=== PATIENT | male | born 1995 | race African-American/Black ===

== ENCOUNTER 2016-07-06 11:49 | Emergency (ER) | payer OTHER ==
[~2016-07-06] VITALS: Ht 177.8 cm; Wt 112.4 kg
[~2016-07-06 11:49] MED LIST: AMOXICILLIN500 MG PO; AUGMENTIN875 MG PO; AZITHROMYCIN250 MG1 PO; BENTYL10 MG PO; CEFDINIR300 MG PO; CLARITIN10 M3 PO; FLONASE16 G1 BOTH NARES; FLOXIN OTIC SOLN5 ML RIGHT EAR; IBUPROFEN800 MG PO; KEFLEX500 MG PO; MOTRIN800 MG PO; NAPROSYN500 MG PO; NAPROXEN500 MG PO; PERCOCET 5/31 TABLET PO; PREDNISONE50 MG PO; ULTRAM50 MG PO; ZOFRAN ODT4 MG PO; ZOFRAN4 MG PO; [UNRECOGNIZED DRUG - OTHER] PO
[2016-07-06 12:31] LABS: HEMATOCRIT 51.4 % (38.0-50.0); MCH 28.4 PG (29.0-34.0); MCHC 34.4 G/DL (30.0-36.0); MCV 82.4 FL (86-99); MEAN PLAT.VOLUME 11.1 uM^3 (9.0-12.4); PLATELET COUNT 229 K/uL (156-360); RBC DIS.WIDTH-CV 13.2 % (11.8-14.6); RBC DIS.WIDTH-SD 39.5 % (39-53); RED BLOOD COUNT 6.24 M/uL (4.00-5.50)
[2016-07-06 12:41] LABS: CHLORIDE 103 mEq/L (99-109); POTASSIUM 4.3 mEq/L (3.7-5.4); SODIUM 138 mEq/L (136-147)
[2016-07-06 12:43] LABS: GLUCOSE 113 mg/dL (70-99)
[2016-07-06 12:44] LABS: ANION GAP 8 MEQ/L (2-14)
[2016-07-06 12:45] LABS: TOTAL BILIRUBIN 0.5 mg/dL (0.0-1.0)
[2016-07-06 12:47] LABS: ALKALINE PHOSPHATASE 44 IU/L (3-129); GFR ESTIMATE (CALCULATED) > 59 mL/min/
[2016-07-06 12:48] LABS: UREA NITROGEN (BUN) 7 mg/dL (9-23)
[2016-07-06] MEDS ORDERED: ZOFRAN ODT4 MG PO (14:00)
[2016-07-06 14:32] VITALS: BP 131/68
== END 2016-07-06 14:33 | disposition home or self-care (01) ==
LOC: EME 11:49 → EXP 11:49
DX: K52.9 Noninfective gastroenteritis and colitis, unspecified (principal)
CPT/HCPCS: 80053; 81003; 85027; 99281; 99284

== ENCOUNTER 2016-07-09 17:03 | Emergency (ER) | payer OTHER ==
[~2016-07-09] VITALS: Ht 177.8 cm; Wt 112.7 kg
[2016-07-09 17:41] LABS: ADD MIUA? NO; BILIRUBIN NEGATIVE; BLOOD NEGATIVE; COLOR YELLOW ((YELLOW)); GLUCOSE (STRIP) NEGATIVE; KETONES 20; LEUKOCYTES NEGATIVE; NITRITE NEGATIVE; PROTEIN (STRIP) NEGATIVE; SPECIFIC GRAVITY 1.017 (1.000-1.030); UROBILINOGEN 0.2 MG/DL (0.2-1.0)
[2016-07-09 17:54] LABS: EOSINOPHIL (%) 3.2 % (0-5); EOSINOPHIL COUNT 0.2 K/uL (0-0.3); HEMATOCRIT 48.6 % (38.0-50.0); IMMATURE GRANULOCYTE (%) 0.3 % (0.0-0.7); IMMATURE GRANULOCYTE COUNT 0.2 K/uL; LYMPHOCYTE COUNT 1.7 K/uL (1.0-2.8); MCH 28.2 PG (29.0-34.0); MCHC 34.6 G/DL (30.0-36.0); MCV 81.5 FL (86-99); MEAN PLAT.VOLUME 10.9 uM^3 (9.0-12.4); MONOCYTE COUNT 0.6 K/uL (0-0.8); NEUTROPHIL (%) 58.2 % (45-76); NEUTROPHIL COUNT 3.7 K/uL (1.8-6.4); PLATELET COUNT 240 K/uL (156-360); RBC DIS.WIDTH-CV 13.3 % (11.8-14.6); RBC DIS.WIDTH-SD 38.8 % (39-53); RED BLOOD COUNT 5.96 M/uL (4.00-5.50); WHITE BLOOD COUNT 6.3 K/uL (4.1-10.2)
[2016-07-09 18:04] LABS: CHLORIDE 104 mEq/L (99-109); POTASSIUM 4.2 mEq/L (3.7-5.4); SODIUM 138 mEq/L (136-147)
[2016-07-09 18:06] LABS: GLUCOSE 87 mg/dL (70-99)
[2016-07-09 18:07] LABS: ANION GAP 9 MEQ/L (2-14)
[2016-07-09 18:10] LABS: ALKALINE PHOSPHATASE 43 IU/L (3-129); GFR ESTIMATE (CALCULATED) > 59 mL/min/
[2016-07-09 18:11] LABS: UREA NITROGEN (BUN) 7 mg/dL (9-23)
[2016-07-09 18:13] LABS: LIPASE 7 U/L (1.0-51.0)
[2016-07-09 18:16] LABS: TOTAL BILIRUBIN 0.2 mg/dL (0.0-1.0)
[2016-07-09] MEDS ORDERED: PEPCID20 MG PO (18:52)
[2016-07-09 19:00] VITALS: BP 136/105
[2016-07-09] MEDS ORDERED: CARAFATE1 GM PO (19:00)
== END 2016-07-09 19:03 | disposition home or self-care (01) ==
LOC: EME 17:03
PROVIDERS: Physician Assistant
DX: R11.2 Nausea with vomiting, unspecified (principal); R10.9 Unspecified abdominal pain
CPT/HCPCS: 80053; 81003; 83690; 85025; 99281; 99284

== ENCOUNTER 2016-07-25 01:14 | Emergency (ER) | payer OTHER ==
[~2016-07-25] VITALS: Ht 177.8 cm; Wt 110.3 kg
[~2016-07-25 01:14] MED LIST changes: +CARAFATE1 GM PO; +PEPCID20 MG PO
[2016-07-25 02:00] LABS: CHLORIDE 100 mEq/L (99-109); POTASSIUM 3.8 mEq/L (3.7-5.4); SODIUM 136 mEq/L (136-147)
[2016-07-25 02:02] LABS: GLUCOSE 100 mg/dL (70-99)
[2016-07-25 02:03] LABS: ANION GAP 11 MEQ/L (2-14)
[2016-07-25 02:03] LABS: HEMATOCRIT 51.7 % (38.0-50.0); MCH 27.9 PG (29.0-34.0); MCHC 33.1 G/DL (30.0-36.0); MCV 84.5 FL (86-99); MEAN PLAT.VOLUME 11.2 uM^3 (9.0-12.4); PLATELET COUNT 156 K/uL (156-360); RBC DIS.WIDTH-CV 12.7 % (11.8-14.6); RBC DIS.WIDTH-SD 39.2 % (39-53); RED BLOOD COUNT 6.12 M/uL (4.00-5.50); WHITE BLOOD COUNT 3.3 K/uL (4.1-10.2)
[2016-07-25 02:04] LABS: TOTAL BILIRUBIN 0.5 mg/dL (0.0-1.0)
[2016-07-25 02:05] LABS: ALKALINE PHOSPHATASE 39 IU/L (3-129)
[2016-07-25 02:06] LABS: GFR ESTIMATE (CALCULATED) > 59 mL/min/
[2016-07-25 02:07] LABS: UREA NITROGEN (BUN) 10 mg/dL (9-23)
[2016-07-25 02:15] LABS: INFLUENZA A VIRAL ANTIGEN POSITIVE; INFLUENZA B VIRAL ANTIGEN NEGATIVE
[2016-07-25] MEDS ORDERED: ZOFRAN ODT4 MG PO (02:21)
[2016-07-25 03:00] VITALS: BP 150/85
== END 2016-07-25 03:01 | disposition home or self-care (01) ==
LOC: EME 01:14
PROVIDERS: Physician Assistant
DX: E86.0 Dehydration (principal); J10.1 Influenza due to other identified influenza virus with other respiratory manifestations; R11.2 Nausea with vomiting, unspecified
CPT/HCPCS: 80053; 81003; 85027; 87502; 93005; 99281; 99284; J2405; J7030

== ENCOUNTER 2016-08-22 06:00 | Emergency (ER) | payer OTHER ==
[~2016-08-22] VITALS: Ht 177.8 cm; Wt 112.9 kg
[2016-08-22] MEDS ORDERED: MOTRIN800 MG PO (07:08)
[2016-08-22 07:23] VITALS: BP 133/82
== END 2016-08-22 07:29 | disposition home or self-care (01) ==
LOC: EME 06:00
DX: S60.221A Contusion of right hand, initial encounter (principal); M25.531 Pain in right wrist; Y04.2XXA Assault by strike against or bumped into by another person, initial encounter
CPT/HCPCS: 73110; 73130; 99281; 99283

== ENCOUNTER 2016-11-16 13:27 | Emergency (ER) | payer OTHER ==
[~2016-11-16] VITALS: Ht 177.8 cm; Wt 116.8 kg
[2016-11-16] MEDS ORDERED: MOTRIN800 MG PO (15:48)
[2016-11-16 16:03] VITALS: BP 129/74
== END 2016-11-16 16:12 | disposition home or self-care (01) ==
LOC: EME 13:27
DX: J02.9 Acute pharyngitis, unspecified (principal); R51 Headache
CPT/HCPCS: 87651 90; 99281; 99283

== ENCOUNTER 2017-02-22 23:12 | Emergency (ER) | payer OTHER ==
[~2017-02-22] VITALS: Ht 177.8 cm; Wt 112.8 kg
[2017-02-23] MEDS ORDERED: NAPROSYN500 MG PO (00:24)
[2017-02-23 00:34] VITALS: BP 145/88
== END 2017-02-23 00:34 | disposition home or self-care (01) ==
LOC: EXP 23:12 → EME 23:12 → EXP 02-23 00:34
DX: S20.212A Contusion of left front wall of thorax, initial encounter (principal); S06.0X0A Concussion without loss of consciousness, initial encounter; Y09 Assault by unspecified means; G47.30 Sleep apnea, unspecified
CPT/HCPCS: 71101; 99281; 99284

== ENCOUNTER 2017-03-21 21:07 | Emergency (ER) | payer OTHER ==
[~2017-03-21] VITALS: Ht 180.3 cm; Wt 114.1 kg
[2017-03-21] MEDS ORDERED: PERCOCET 5/31 TABLET PO (21:32)
[2017-03-21] MEDS ORDERED: CLEOCIN300 MG PO (21:32)
[2017-03-21 22:36] VITALS: BP 129/72
== END 2017-03-21 22:37 | disposition home or self-care (01) ==
LOC: EME 21:07
PROC: 0H98XZZ Drainage of Buttock Skin, External Approach (ICD-10-PCS; principal; 2017-03-21)
DX: L02.31 Cutaneous abscess of buttock (principal)
CPT/HCPCS: 99281; 99283

== ENCOUNTER 2017-03-24 19:09 | Emergency (ER) | payer OTHER ==
[~2017-03-24] VITALS: Ht 177.8 cm; Wt 115.1 kg
[~2017-03-24 19:09] MED LIST changes: +CLEOCIN300 MG PO
[2017-03-24] MEDS ORDERED: NORCO 10/3251 TABLET PO (21:17)
[2017-03-24] MEDS ORDERED: MOTRIN800 MG PO (21:17)
[2017-03-24 21:41] VITALS: BP 124/72
== END 2017-03-24 21:42 | disposition home or self-care (01) ==
LOC: EME 19:09
DX: L02.31 Cutaneous abscess of buttock (principal); Z48.00 Encounter for change or removal of nonsurgical wound dressing
CPT/HCPCS: 99281; 99283

== ENCOUNTER 2017-04-13 13:23 | Emergency (ER) | payer OTHER ==
[~2017-04-13] VITALS: Ht 180.3 cm; Wt 111.9 kg
[~2017-04-13 13:23] MED LIST changes: +NORCO 10/3251 TABLET PO
[2017-04-13 13:56] LABS: HEMATOCRIT 49.3 % (38.0-50.0); MCH 29.3 PG (29.0-34.0); MCHC 33.9 G/DL (30.0-36.0); MCV 86.5 FL (86-99); PLATELET COUNT 224 K/uL (156-360); RBC DIS.WIDTH-CV 12.6 % (11.8-14.6); RBC DIS.WIDTH-SD 39.6 % (39-53); WHITE BLOOD COUNT 5.3 K/uL (4.1-10.2)
[2017-04-13 14:05] LABS: CHLORIDE 102 mEq/L (99-109); SODIUM 140 mEq/L (136-147)
[2017-04-13 14:07] LABS: GLUCOSE 80 mg/dL (70-99)
[2017-04-13 14:09] LABS: ANION GAP 11 MEQ/L (2-14); TOTAL BILIRUBIN 0.5 mg/dL (0.0-1.0)
[2017-04-13 14:11] LABS: ALKALINE PHOSPHATASE 47 IU/L (3-129); GFR ESTIMATE (CALCULATED) > 59 mL/min/
[2017-04-13 14:12] LABS: UREA NITROGEN (BUN) 8 mg/dL (9-23)
[2017-04-13 15:31] LABS: LIPASE 14 U/L (1.0-51.0)
[2017-04-13 16:19] LABS: ADD MIUA? NO; BILIRUBIN NEGATIVE; BLOOD NEGATIVE; COLOR YELLOW ((YELLOW)); GLUCOSE (STRIP) NEGATIVE; KETONES NEGATIVE; LEUKOCYTES NEGATIVE; NITRITE NEGATIVE; PROTEIN (STRIP) NEGATIVE; SPECIFIC GRAVITY 1.019 (1.000-1.030); UCUL ADDED? NO; UROBILINOGEN 0.2 MG/DL (0.2-1.0)
[2017-04-13] MEDS ORDERED: ZOFRAN ODT4 MG PO (16:37)
[2017-04-13 16:42] VITALS: BP 116/81
== END 2017-04-13 16:48 | disposition home or self-care (01) ==
LOC: EME 13:23
DX: R11.2 Nausea with vomiting, unspecified (principal); G47.30 Sleep apnea, unspecified
CPT/HCPCS: 80053; 81003; 83690; 85027; 99281; 99285; J2550

== ENCOUNTER 2017-05-05 17:13 | Emergency (ER) | payer OTHER ==
[~2017-05-05] VITALS: Ht 180.3 cm; Wt 116.0 kg
[2017-05-05 18:56] VITALS: BP 154/97
== END 2017-05-05 18:57 | disposition home or self-care (01) ==
LOC: EME 17:13
DX: L02.31 Cutaneous abscess of buttock (principal)
CPT/HCPCS: 99281; 99284

== ENCOUNTER 2017-06-02 15:19 | Emergency (ER) | payer OTHER ==
[~2017-06-02] VITALS: Ht 180.3 cm; Wt 114.0 kg
[2017-06-02 15:43] LABS: HEMATOCRIT 47.3 % (38.0-50.0); HEMOGLOBIN 16.1 G/DL (12.5-16.6); MCH 29.3 PG (29.0-34.0); PLATELET COUNT 201 K/uL (156-360); RBC DIS.WIDTH-CV 12.5 % (11.8-14.6); RBC DIS.WIDTH-SD 39.2 % (39-53); WHITE BLOOD COUNT 5.4 K/uL (4.1-10.2)
[2017-06-02 15:50] LABS: CHLORIDE 107 mEq/L (99-109); POTASSIUM 4.2 mEq/L (3.7-5.4); SODIUM 138 mEq/L (136-147)
[2017-06-02 15:52] LABS: GLUCOSE 92 mg/dL (70-99)
[2017-06-02 15:55] LABS: SERUM ETHYL ALCOHOL < 10 mg/dL
[2017-06-02 15:56] LABS: CREATININE 0.8 mg/dL (0.6-1.3); GFR ESTIMATE (CALCULATED) > 59 mL/min/ (58.99-99999)
[2017-06-02 15:57] LABS: UREA NITROGEN (BUN) 8 mg/dL (9-23)
[2017-06-02 17:45] VITALS: BP 130/79
== END 2017-06-02 17:54 | disposition home or self-care (01) ==
LOC: EME 15:19
DX: F31.9 Bipolar disorder, unspecified (principal); S61.512A Laceration without foreign body of left wrist, initial encounter; X78.8XXA Intentional self-harm by other sharp object, initial encounter
CPT/HCPCS: 80048; 85027; 90837; G0480